=== PATIENT | female | born 2000 | race Hispanic/Latino ===

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

== ENCOUNTER 2024-02-21 12:02 | Emergency (ER) | payer MEDICAID | END 2024-02-21 12:35 | disposition home or self-care (01) | LOC: ERS 12:02 | DX: S91.011D Laceration without foreign body, right ankle, subsequent encounter (principal); F17.290 Nicotine dependence, other tobacco product, uncomplicated; X58.XXXD Exposure to other specified factors, subsequent encounter | CPT/HCPCS: 99281 ==